=== PATIENT | female | born 1940 | race Caucasian/White ===

== ENCOUNTER 2017-10-26 07:54 | Emergency (ER) | payer MEDICARE ==
[~2017-10-26] VITALS: Ht 165.1 cm; Wt 74.4 kg
[~2017-10-26 07:54] MED LIST: AROMASIN25 MG PO; ASPIR 8181 MG PO; CARVEDILOL12.5 MG PO; DIOVAN 80 MG TA80 M1 PO; DIOVAN HCT 3201 EAC1 PO; GLUCOPHAGE1000 MG PO; HYDROCODONE-APA1 TA1 PO; KLOR-CON 1010 MEQ PO; LASIX 40 MG TAB40 M2 PO; MACROBID 100 M100 M1 PO; MULTIVITAMINS1 EAC7 PO; NORVASC10 MG PO; OMEGA-31000 M1 PO; OMEPRAZOLE 20 M20 M1 PO; SIMVASTATIN40 MG PO; TUMS PO; VENTOLIN HFA 1818 GM INH; VITAMIN D3400 UNIT PO
[2017-10-26 08:55] LABS: ABSOLUTE EOSINOPHILS 0.2 thou/uL (0.0-0.7); ABSOLUTE LYMPHOCYTES 1.4 thou/uL (0.8-5.3); ABSOLUTE MONOCYTES 0.3 thou/uL (0.0-1.2); ABSOLUTE NEUTROPHILS 4.9 thou/uL (1.6-8.1); BASOPHILS 0.5 %; EOSINOPHILS 2.3 %; HEMATOCRIT 39.1 % (37.0-47.0); HEMOGLOBIN 13.1 gm/dL (12.0-15.0); LYMPHOCYTES 20.8 %; MCH 28.9 pg (26.0-34.0); MCHC 33.4 g/dL (28.0-37.0); MCV 86.5 fL (80.0-100.0); MONOCYTES 4.7 %; MPV 7.9 fl. (7.2-11.1); NUCLEATED RBCS 0 /100WBC; PLATELET COUNT* 258 thou/uL (150-400); POLYS 71.7 %; RBC 4.52 mil/uL (4.20-5.00); RDW-CV 16.1 % (10.5-14.5); WBC 6.8 thou/uL (4.0-11.0)
[2017-10-26 09:04] LABS: ANION GAP 9 mmol/L (7-16); BUN 10 mg/dL (7-18); CALCIUM 9.3 mg/dL (8.5-10.1); CHLORIDE 104 mmol/L (98-107); CO2 27 mmol/L (21-32); CREATININE 0.8 mg/dL (0.6-1.3); GLUCOSE 128 mg/dL (70-99); SODIUM 140 mmol/L (136-145)
[2017-10-26 09:15] LABS: ALBUMIN 3.6 g/dL (3.4-5.0); ALKALINE PHOSPHATASE 101 U/L (46-116); NT-PRO BRAIN NAT PEPTIDE 968 pg/mL (<300); SGOT 15 U/L (15-37); SGPT 20 U/L (30-65); TOTAL BILIRUBIN 0.5 mg/dL (<0.1-1.0); TOTAL PROTEIN 7.1 g/dL (6.4-8.2); TROPONIN-I LEVEL <0.06 ng/mL (<0.06)
[2017-10-26] MEDS ORDERED: ANTIVERT25 MG PO (09:24)
[2017-10-26 09:43] VITALS: BP 177/75
--- NOTE | 2017-10-26 15:09 | EKG ---
[place] [address] ELECTROCARDIOGRAM REPORT Name: DAVID MENG [id number] Admission: 10/26/17 Attend Phys: Discharge: 10/26/17 Date of : 40 Report #: [id number] THIS REPORT FOR: //name// [facility] ED Test Date: 2017-10-26 Test Time: 08:51:29 Pat Name: DAVID MENG Department: Room: Gender: F Vasc Tech: GALE : 1940 Requested By: Cornelius Drake Order Number: [id number] MD: Yaron Olguin Measurements Intervals [place] Rate: 77 P: 36 [place]: 164 QRS: 94 QRSD: 142 T: 6 QT: 401 QTc: 454 Interpretive Statements Sinus rhythm RBBB and LPFB Compared to ECG 02/14/2017 17:20:43 No significant changes Electronically Signed On 10-26-2017 15:09:05 CDT by Yaron Olguin [email or web address] <ELECTRONICALLY SIGNED> By: Yaron Olguin MD, [facility] 10/26/17 1509 [id number] 0 Yaron Olguin MD, FACC /EPI
== END 2017-10-26 09:44 | disposition home or self-care (01) ==
LOC: M.ERS 07:54
PROVIDERS: Emergency Medicine Emergency Medical Services
DX: H81.13 Benign paroxysmal vertigo, bilateral (principal); I10 Essential (primary) hypertension; E11.9 Type 2 diabetes mellitus without complications; Z88.1 Allergy status to other antibiotic agents; Z91.040 Latex allergy status

== ENCOUNTER → 2018-01-07 | Outpatient (CLI) | payer MEDICARE ==
[~2018-01-07] MED LIST changes: +ANTIVERT25 MG PO
== END ==
LOC: M.RAD 10:40
DX: M81.0 Age-related osteoporosis without current pathological fracture (principal); M85.89 Other specified disorders of bone density and structure, multiple sites; R92.1 Mammographic calcification found on diagnostic imaging of breast; I10 Essential (primary) hypertension; E11.9 Type 2 diabetes mellitus without complications; Z85.3 Personal history of malignant neoplasm of breast

== ENCOUNTER 2018-07-28 00:58 | Inpatient (IN) | payer MEDICARE ==
[~2018-07-28] VITALS: Ht 165.1 cm; Wt 74.8 kg
[2018-07-28 00:59] VITALS: BP 173/92
[2018-07-28 01:35] LABS: ABSOLUTE BASOPHILS 0.1 thou/uL (0.0-0.2); ABSOLUTE EOSINOPHILS 0.3 thou/uL (0.0-0.7); ABSOLUTE LYMPHOCYTES 2.2 thou/uL (0.8-5.3); ABSOLUTE MONOCYTES 0.4 thou/uL (0.0-1.2); ABSOLUTE NEUTROPHILS 8.9 thou/uL (1.6-8.1); BASOPHILS 0.9 %; EOSINOPHILS 2.4 %; HEMATOCRIT 40.1 % (37.0-47.0); HEMOGLOBIN 13.1 gm/dL (12.0-15.0); LYMPHOCYTES 18.4 %; MCH 27.7 pg (26.0-34.0); MCHC 32.6 g/dL (28.0-37.0); MCV 84.9 fL (80.0-100.0); MONOCYTES 3.1 %; MPV 8.5 fl. (7.2-11.1); NUCLEATED RBCS 0 /100WBC; PLATELET COUNT* 338 thou/uL (150-400); POLYS 75.2 %; RBC 4.73 mil/uL (4.20-5.00); RDW-CV 15.9 % (10.5-14.5); WBC 11.9 thou/uL (4.0-11.0)
[2018-07-28 01:52] LABS: ALBUMIN 3.8 g/dL (3.4-5.0); ALKALINE PHOSPHATASE 113 U/L (46-116); ANION GAP 9 mmol/L (7-16); BUN 24 mg/dL (7-18); CALCIUM 9.1 mg/dL (8.5-10.1); CHLORIDE 101 mmol/L (98-107); CO2 26 mmol/L (21-32); CREATININE 1.5 mg/dL (0.6-1.3); GLUCOSE 169 mg/dL (70-99); LIPASE 166 U/L (73-393); POTASSIUM 4.4 mmol/L (3.5-5.1); SGOT 12 U/L (15-37); SGPT 25 U/L (30-65); SODIUM 136 mmol/L (136-145); TOTAL BILIRUBIN 0.3 mg/dL (<0.1-1.0); TOTAL PROTEIN 7.4 g/dL (6.4-8.2); TROPONIN-I LEVEL <0.06 ng/mL (<0.06)
[2018-07-28 05:31] LABS: URINE BILIRUBIN NEGATIVE (Negative); URINE BLOOD NEGATIVE (Negative); URINE CLARITY CLEAR; URINE COLOR YELLOW; URINE GLUCOSE-RANDOM 2+ (Negative); URINE KETONES NEGATIVE (Negative); URINE LEUKOCYTES-REFLEX TRACE (Negative); URINE NITRITE-REFLEX NEGATIVE (Negative); URINE PROTEIN NEGATIVE (Negative); URINE SPECIFIC GRAVITY 1.025 (1.005-1.030); URINE UROBILINOGEN 0.2 E.U./dl (0.2-1.0)
[2018-07-28 05:39] LABS: BACTERIA-REFLEX 1-9 Few /HPF (None Seen); MUCUS 0-3 Light strn/LPF (None Seen); SQUAMOUS 0-3 Few /LPF (0-3); URINE RBC 0-2 Rare /HPF (0-2); URINE WBC-REFLEX 0-5 Rare /HPF (0-5)
[2018-07-28 05:40] LABS: CASTS None Seen /LPF (None Seen); CRYSTALS None Seen /LPF (None Seen)
[2018-07-28 08:40] VITALS: BP 151/67
--- NOTE | 2018-07-28 09:43 | EKG ---
[place] [address] ELECTROCARDIOGRAM REPORT Name: DAVID MENG Room: [address] ADM IN .R.#: [id number] Admission: 07/28/18 Attend Phys: Cory Agudelo MD Discharge: Date of : 40 Report #: [id number] THIS REPORT FOR: //name// [facility] Test Date: 2018-07-28 Test Time: 01:38:30 Pat Name: DAVID MENG Department: Room: [facility] Gender: F Sign Fabricator: : 1940 Requested By: Satish Uribe Order Number: [id number] MD: Yaron Olguin Measurements Intervals [place] Rate: 83 P: 48 [place]: 164 QRS: 89 QRSD: 158 T: 18 QT: 432 QTc: 508 Interpretive Statements Sinus rhythm Probable left atrial enlargement Right bundle branch block Borderline ST depression, lateral leads Baseline wander in lead(s) I,II,III,aVR,aVL,V1,V5,V6 Compared to ECG 10/26/2017 08:51:29 no change Electronically Signed On 07-28-2018 9:43:21 CDT by Yaron Olguin [email or web address] <ELECTRONICALLY SIGNED> By: Yaron Olguin MD, FACC 07/28/18 0943 [id number] [id number] Yaron Olguin MD, FAC /EPI
[2018-07-28 09:54] VITALS: BP 139/58
[2018-07-28 16:00] VITALS: BP 142/72
[2018-07-28 18:32] LABS: HEMATOCRIT 33.9 % (37.0-47.0); HEMOGLOBIN 11.2 gm/dL (12.0-15.0); MCH 28.7 pg (26.0-34.0); MCHC 33.2 g/dL (28.0-37.0); MCV 86.4 fL (80.0-100.0); MPV 8.4 fl. (7.2-11.1); RBC 3.92 mil/uL (4.20-5.00); RDW-CV 16.1 % (10.5-14.5); WBC 7.2 thou/uL (4.0-11.0)
[2018-07-28 20:30] VITALS: BP 130/55
[2018-07-29 04:09] LABS: ABSOLUTE EOSINOPHILS 0.2 thou/uL (0.0-0.7); ABSOLUTE LYMPHOCYTES 1.9 thou/uL (0.8-5.3); ABSOLUTE MONOCYTES 0.3 thou/uL (0.0-1.2); ABSOLUTE NEUTROPHILS 2.8 thou/uL (1.6-8.1); BASOPHILS 0.7 %; EOSINOPHILS 3.4 %; HEMATOCRIT 30.9 % (37.0-47.0); HEMOGLOBIN 10.3 gm/dL (12.0-15.0); LYMPHOCYTES 35.9 %; MCH 28.8 pg (26.0-34.0); MCHC 33.4 g/dL (28.0-37.0); MCV 86.1 fL (80.0-100.0); MONOCYTES 5.6 %; MPV 8.4 fl. (7.2-11.1); NUCLEATED RBCS 0 /100WBC; PLATELET COUNT* 220 thou/uL (150-400); POLYS 54.4 %; RBC 3.59 mil/uL (4.20-5.00); WBC 5.2 thou/uL (4.0-11.0)
[2018-07-29 04:14] LABS: CALCIUM 7.8 mg/dL (8.5-10.1); CREATININE 0.9 mg/dL (0.6-1.3); POTASSIUM 3.8 mmol/L (3.5-5.1)
[2018-07-29 08:50] VITALS: BP 169/73
[2018-07-29 11:27] VITALS: BP 169/73
[2018-07-29 15:44] VITALS: BP 169/73
[2018-07-29] MEDS ORDERED: PROTONIX40 M1 PO (16:09)
[2018-07-29 16:33] VITALS: BP 152/65
[2018-07-29 16:50] VITALS: BP 169/73
--- NOTE | 2018-07-30 15:06 | PATH ---
[address] [address] PATHOLOGY RPT PROCEDURE Name: DAVID RODRIGUEZ Room: [address] IN M.R.#: [id number] Admission: 07/28/18 Date of : 40 Discharge: 07/29/18 Report #: [id number] Path Case #: [id number] [facility] Accession Number: [id number] . 01 Material submitted: . GASTRIC BIOPSIES FOR H PYLORI . 01 Clinical history: . None provided . 02 Diagnosis: Gastric biopsy, "gastric biopsy for H. pylori": - Mild chronic reactive gastropathy. - Sections also reveal fundic gland polyp. - There is no evidence of adenomatous change, high-grade dysplasia or malignancy. - The immunoperoxidase stain for Helicobacter pylori is negative. (TI:saleem; 07/30/2018) CHIDI/07/30/2018 . 02 Electronically signed: . Nicola Dc MD, Pathologist NPI- [id number] . 01 Gross description: . Received in formalin labeled "David Rodriguez, gastric biopsies for H. pylori," are 3 segments of merrill soft tissue measuring 1.0 x 0.7 x 0.3 cm in aggregate dimensions and ranging from 0.3 to 0.5 cm in maximum dimension. The specimen is submitted entirely in cassette A1. (TSD; 07/29/2018) TOB/TOB . 02 Pathologist provided ICD-10: K31.9, K31.7 . 02 CPT . 961566, Q37784 Specimen Comment: A courtesy copy of this report has been sent to Specimen Comment: [phone], , . Specimen Comment: Report sent to ,DR WAGGONER / DR XIAO Performed at: [address], [place], [place] [id number] MD Usman Arias MD Phone: [phone] Performed at: [address] [address] [address], [place], [place] [id number] MD John Benites MD Phone: [phone]
== END 2018-07-29 16:53 | disposition home or self-care (01) | DRG 682 ==
LOC: M.ERS 00:58 → M.3W 04:36 → M.TBA-ER 04:36 → M.3W 08:46
PROVIDERS: Emergency Medicine; Internal Medicine; Internal Medicine Gastroenterology; ADMIT Internal Medicine
PROC: 0DB78ZX Excision of Stomach, Pylorus, Via Natural or Artificial Opening Endoscopic, Diagnostic (ICD-10-PCS; principal; 2018-07-29)
DX: N17.9 Acute kidney failure, unspecified (principal); R65.11 Systemic inflammatory response syndrome (SIRS) of non-infectious origin with acute organ dysfunction; K56.609 Unspecified intestinal obstruction, unspecified as to partial versus complete obstruction; K56.7 Ileus, unspecified; K21.0 Gastro-esophageal reflux disease with esophagitis; K57.30 Diverticulosis of large intestine without perforation or abscess without bleeding; K29.70 Gastritis, unspecified, without bleeding; K52.9 Noninfective gastroenteritis and colitis, unspecified; I10 Essential (primary) hypertension; E11.9 Type 2 diabetes mellitus without complications; K80.20 Calculus of gallbladder without cholecystitis without obstruction; K44.9 Diaphragmatic hernia without obstruction or gangrene; E86.0 Dehydration; R10.13 Epigastric pain; Z90.710 Acquired absence of both cervix and uterus; Z90.10 Acquired absence of unspecified breast and nipple; Z88.2 Allergy status to sulfonamides; Z88.1 Allergy status to other antibiotic agents; Z91.040 Latex allergy status; Z79.82 Long term (current) use of aspirin; Z79.899 Other long term (current) drug therapy; Z85.3 Personal history of malignant neoplasm of breast

== ENCOUNTER 2018-12-06 07:38 | Inpatient (IN) | payer MEDICARE | END 2018-12-08 10:53 | disposition home or self-care (01) | DRG 291 | LOC: M.ERS 07:38 → M.TBA-ER 10:34 → M.2W 11:29 | PROVIDERS: ADMIT Internal Medicine | DX: I13.0 Hypertensive heart and chronic kidney disease with heart failure and stage 1 through stage 4 chronic kidney disease, or unspecified chronic kidney disease (principal); I50.33 Acute on chronic diastolic (congestive) heart failure; I16.1 Hypertensive emergency; N18.2 Chronic kidney disease, stage 2 (mild); Z96.651 Presence of right artificial knee joint; K21.9 Gastro-esophageal reflux disease without esophagitis; I25.10 Atherosclerotic heart disease of native coronary artery without angina pectoris; E11.9 Type 2 diabetes mellitus without complications; Z85.3 Personal history of malignant neoplasm of breast; Z79.82 Long term (current) use of aspirin; Z79.899 Other long term (current) drug therapy; Z88.2 Allergy status to sulfonamides; Z88.1 Allergy status to other antibiotic agents; Z91.040 Latex allergy status; Z90.49 Acquired absence of other specified parts of digestive tract; Z90.12 Acquired absence of left breast and nipple; Z90.710 Acquired absence of both cervix and uterus ==

== ENCOUNTER → 2019-01-19 | Outpatient (CLI) | payer MEDICARE ==
[~2019-01-19] MED LIST changes: +ASPIRIN325 PO; +PROTONIX40 M1 PO
== END ==
LOC: M.RAD 01-03 10:00
DX: R92.8 Other abnormal and inconclusive findings on diagnostic imaging of breast (principal)

== ENCOUNTER → 2019-05-27 | Outpatient (CLI) | payer MEDICARE | LOC: M.MRI 16:03 | DX: M47.812 Spondylosis without myelopathy or radiculopathy, cervical region (principal); M43.12 Spondylolisthesis, cervical region; M48.02 Spinal stenosis, cervical region; G44.52 New daily persistent headache (NDPH); R26.89 Other abnormalities of gait and mobility ==

== ENCOUNTER → 2019-06-08 | Outpatient (CLI) | payer MEDICARE ==
[2019-06-08 12:59] LABS: CREATININE 1.5 mg/dL (0.6-1.3)
== END ==
LOC: M.LAB 12:30 → M.MRI 13:30
PROVIDERS: Family Medicine
DX: M54.2 Cervicalgia (principal)

== ENCOUNTER → 2019-06-17 | Outpatient (CLI) | payer MEDICARE | LOC: M.MRI 12:06 | DX: R90.82 White matter disease, unspecified (principal); K11.6 Mucocele of salivary gland ==

== ENCOUNTER → 2020-02-20 | Outpatient (CLI) | payer MEDICARE | LOC: M.RAD 09:00 | PROVIDERS: ATTEND Internal Medicine Hematology & Oncology | DX: R92.2 Inconclusive mammogram (principal); N64.89 Other specified disorders of breast; Z85.3 Personal history of malignant neoplasm of breast ==

== ENCOUNTER → 2020-06-04 | Outpatient (CLI) | payer MEDICARE | LOC: M.ULTRA 10:28 | PROVIDERS: ATTEND Internal Medicine Nephrology | DX: K80.20 Calculus of gallbladder without cholecystitis without obstruction (principal); N17.9 Acute kidney failure, unspecified ==

== ENCOUNTER → 2021-02-20 | Outpatient (CLI) | payer MEDICARE | LOC: M.RAD 09:29 | PROVIDERS: ATTEND Family Medicine | DX: Z12.31 Encounter for screening mammogram for malignant neoplasm of breast (principal) ==